=== PATIENT | male | born 2000 | race Hispanic/Latino ===

== ENCOUNTER 2021-05-02 10:37 | Emergency (ER) | payer OTHER ==
--- NOTE | 2021-05-02 11:09 | EDPHYS ---
Physician Documentation [facility] Name: Deshawn Hernandez Age: 20 yrs Sex: Male : 2000 Arrival Date: 05/02/2021 Time: 10:41 Bed 6 Private MD: ED Physician Ebenezer Shanks HPI: 05/02 11:14 This 20 yrs old Male presents to ER via Ambulatory with complaints of DRAINAGE jmm REMOVAL. 11:14 Patient presents to ED for recheck of: appendicitis. The affected area is on the [facility] abdomen. Progress: The patient reports excellent improvement in the affected area. There has been resolution, improvement, or non-development of any drainage, fever, pain, redness or swelling. The patient has not experienced similar symptoms in the past. This is a 20-year-old male with no chronic medical conditions status post acute appendectomy performed 1 week ago. Patient had a KERI drain placed. Family states they are advised by their general surgeon that they could go to any ER to have it removed. Denies fever or increasing abdominal pain.. Historical: - Allergies: 10:51 No Known Allergies; iw - Home Meds: 10:51 Metronidazole Oral [Active]; Cipro Oral [Active]; Tramadol Oral [Active]; iw - PMHx: 10:51 None; iw - PSHx: 10:51 Appendectomy; iw - Immunization history:: Adult Immunizations up to date, Client reports having NOT received the Covid vaccine. - Social history:: Smoking status: Patient denies any tobacco usage or history of. ROS: 11:14 Constitutional: Negative for fever, chills, and weight loss, Cardiovascular: Negative jmm for chest pain, palpitations, and edema, Respiratory: Negative for shortness of breath, cough, wheezing, and pleuritic chest pain, Abdomen/GI: Negative for abdominal pain, nausea, vomiting, diarrhea, and constipation. 11:14 All other systems are negative. Exam: 11:14 Constitutional: This is a well developed, well nourished patient who is awake, alert, jmm and in no acute distress. Head/Face: atraumatic. Eyes: EOMI, no conjunctival erythema appreciated ENT: Moist Mucus Membranes Neck: Trachea midline, Supple Chest/axilla: Normal chest wall appearance and motion. Cardiovascular: Regular rate and rhythm. No edema appreciated Respiratory: Normal respirations, no respiratory distress appreciated 11:14 Abdomen/GI: Inspection: KERI KERI drain noted from the suprapubic region. There is no surrounding erythema or induration appreciated. 11:14 Musculoskeletal/extremity: ROM: intact in all extremities. 11:14 Skin: Appearance: Color: normal in color. 11:14 Neuro: Motor: is normal. 11:14 Psych: Behavior/mood is pleasant, cooperative. Vital Signs: 10:49 BP 116 / 59; Pulse 75; Resp 16; Pulse Ox 100% on R/A; Weight 99.79 kg; Height 5 ft. 8 iw in. (172.72 cm); 11:00 BP 118 / 74; Pulse 72; Resp 17; Pulse Ox 100% ; Pain 2/10; jh6 10:49 Body Mass Index 33.45 (99.79 kg, 172.72 cm) iw MDM: 11:02 Patient medically screened. [facility] 11:07 Data reviewed: vital signs, nurses notes. Counseling: I had a detailed discussion with [facility] the patient and/or guardian regarding: the historical points, exam findings, and any diagnostic results supporting the discharge/admit diagnosis, the need for outpatient follow up, to return to the emergency department if symptoms worsen or persist or if there are any questions or concerns that arise at home. 11:17 ED course: I discussed the patient with Dr. Castaneda whom will follow up with the [facility] patient for reevaluation. . Administered Medications: No medications were administered Disposition: 05/03 10:29 Co-signature as Attending Physician, Ebenezer Shanks MD I agree with the assessment and [facility] plan of care. Disposition Summary: 05/02/21 11:08 Discharge Ordered Location: Home [facility] Condition: Stable [facility] Diagnosis - Wound Evaluation [facility] Followup: [facility] - With: Cordell Castaneda MD - When: As needed - Reason: Recheck today's complaints, Continuance of care, Re-evaluation by your physician Discharge Instructions: - Discharge Summary Sheet [facility] - Wound Care, Adult [facility] Forms: - Medication Reconciliation Form [facility] - Thank You Letter [facility] - Antibiotic Education [facility] - Prescription Opioid Use [facility] Signatures: Ebenezer Shanks MD MD [facility] Wander Benavides PA PA jm Lianna Anthony RN LINDA Maryann Meade RN RN jh6 Corrections: (The following items were deleted from the chart) 05/02 10:52 10:51 Home Meds: None; iw iw
--- NOTE | 2021-05-02 11:09 | ER ---
Nurse's Notes [facility] Name: Deshawn Hernandez Age: 20 yrs Sex: Male : 2000 Arrival Date: 05/02/2021 Time: 10:41 Bed 6 Private MD: Diagnosis: Wound Evaluation Presentation: 05/02 10:49 Chief complaint: Patient states: had appendix taken out a week ago on Saturday, had a iw drain placed, had surgery done in [place], is from this area. Coronavirus screen: At this time, the client does not indicate any symptoms associated with coronavirus-19. Ebola Screen: Patient negative for fever greater than or equal to 101.5 degrees Fahrenheit, and additional compatible Ebola Virus Disease symptoms Patient denies exposure to infectious person. Patient denies travel to an Ebola-affected area in the 21 days before illness onset. No symptoms or risks identified at this time. Initial Sepsis Screen: Does the patient meet any 2 criteria? No. Patient's initial sepsis screen is negative. Does the patient have a suspected source of infection? No. Patient's initial sepsis screen is negative. Risk Assessment: Do you want to hurt yourself or someone else? Patient reports no desire to harm self or others. Onset of symptoms was May 02, 2021. 10:49 Method Of Arrival: Ambulatory iw 10:49 Acuity: SERGIO 3 iw Historical: - Allergies: 10:51 No Known Allergies; iw - Home Meds: 10:51 Metronidazole Oral [Active]; Cipro Oral [Active]; Tramadol Oral [Active]; iw - PMHx: 10:51 None; iw - PSHx: 10:51 Appendectomy; iw - Immunization history:: Adult Immunizations up to date, Client reports having NOT received the Covid vaccine. - Social history:: Smoking status: Patient denies any tobacco usage or history of. Screenin:00 Abuse screen: Denies threats or abuse. Nutritional screening: No deficits noted. jh6 Tuberculosis screening: No symptoms or risk factors identified. Fall Risk None identified. Assessment: 11:00 Pain: Complains of pain in right lower quadrant and left lower quadrant Pain currently jh6 is 3 out of 10 on a pain scale. 11:20 General: Appears in no apparent distress. Behavior is calm, cooperative. GI: Reports jh6 lower abdominal pain. 11:23 Reassessment: pt and mother advised to follow up with local surgeon. [facility] Vital Signs: 10:49 BP 116 / 59; Pulse 75; Resp 16; Pulse Ox 100% on R/A; Weight 99.79 kg; Height 5 ft. 8 iw in. (172.72 cm); 11:00 BP 118 / 74; Pulse 72; Resp 17; Pulse Ox 100% ; Pain 2/10; jh6 10:49 Body Mass Index 33.45 (99.79 kg, 172.72 cm) ED Course: 10:41 Patient arrived in ED. 5 10:51 Triage completed. 10:52 Maryann Meade, RN is Primary Nurse. [facility] 10:53 Wander Benavides PA is PHCP. [facility] 10:53 Ebenezer Shanks MD is Attending Physician. [facility] 11:00 Call light in reach. Side rails up X 1. Adult w/ patient. 6 11:00 Arm band placed on right wrist. [facility] 11:07 Cordell Castaneda MD is Referral Physician. [facility] 11:22 No provider procedures requiring assistance completed. 6 11:23 Patient did not have IV access during this emergency room visit. [facility] Administered Medications: No medications were administered Outcome: 11:08 Discharge ordered by . [facility] 11:22 Discharged to home [facility] 11:22 Condition: good 11:22 Discharge instructions given to patient, family, Instructed on discharge instructions, follow up and referral plans. Demonstrated understanding of instructions, follow-up care. 11:24 Patient left the ED. [facility] Signatures: Wander Benavides PA PA Lianna Soriano RN RN Maryann Meade, RN RN [facility] Aby Lainez 5 Corrections: (The following items were deleted from the chart) 10:52 10:51 Home Meds: None; [facility] 11:21 11:20 Pain: Complains of pain in right lower quadrant and left lower quadrant Pain [facility] currently is 3 out of 10 on a pain scale. [facility]
[2021-05-02 11:31] VITALS: O2SAT 100
[2021-05-02 11:33] VITALS: BP 118/74
== END 2021-05-02 11:24 | disposition home or self-care (01) ==
LOC: ER 10:37
DX: Z48.01 Encounter for change or removal of surgical wound dressing (principal); Z98.890 Other specified postprocedural states
CPT/HCPCS: 99281